=== PATIENT | male | born 1955 | race Caucasian/White ===

== ENCOUNTER 2016-07-16 13:31 | Emergency (ER) | payer MEDICARE, MEDICAID ==
[~2016-07-16] VITALS: Ht 172.7 cm; Wt 104.3 kg
[~2016-07-16 13:31] MED LIST: ACET325T9 PO; ARIP5TAB13 PO; ASPI-482 PO; ATOR40TA59 PO; BUPR100T6 PO; BUPR150T8 PO; CALC500T13 PO; CALC667C6 PO; CHOL20002 PO; CLON0.5T3 PO; CLON1TAB3 PO; DIPH25TA26 PO; DULO30CA2 PO; DULO60CA6 PO; FLUC100T4 PO; IBUP600T16 PO; LISI10TA2 PO; LISI1TAB3 PO; LOPE2TAB56 PO; MAG30ORA2 PO; MAGN2400 PO; MELA3TAB2 PO; METH29OI TP; METO10TA81 PO; METO25TA4 PO; MULT-208 PO; NALO25TA PO; NEBI5TAB2 PO; NITR0.4T SL; OMEG-33 PO; OMEG1CAP28 PO; OMEG300C PO; PANT40TA5 PO; POTA10CA PO; POTA10TA10 PO; PREG75CA PO; SENN1TAB15 PO; SUCR1ORA5 PO; TRAZ-90 PO; TRAZ150T49 PO; ZIPR40CA2 PO
[2016-07-16 13:34] VITALS: BP 152/64
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
[2016-07-16] MEDS ORDERED: IBUPROFEN 600 MG TABLET. PO ONE (14:00)
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
[2016-07-16] MEDS ORDERED: DIPHTH,PERTUSS(ACELL),TET TOX 0.5 ML DISP.SYRIN. VAX IM ONE (14:45)
== END 2016-07-16 14:44 | disposition home or self-care (01) ==
LOC: ER 13:31
DX: M25.562 Pain in left knee (principal); Z88.7 Allergy status to serum and vaccine; V00.831A Fall from motorized mobility scooter, initial encounter; Y93.55 Activity, bike riding; Y99.8 Other external cause status; Y92.89 Other specified places as the place of occurrence of the external cause
CPT/HCPCS: 73564; 99284

== ENCOUNTER 2016-12-31 10:49 | Observation (INO) | payer MEDICARE, MEDICAID ==
[~2016-12-31] VITALS: Ht 172.7 cm; Wt 90.9 kg
--- NOTE | 2016-12-31 11:08 | PHYS DOC ---
Past History Past Medical History: Other Past Surgical History: Other Alcohol Use: None Drug Use: None Adult General Chief Complaint Chief Complaint: NEURO SYMPTOMS/DEFICITS HPI HPI Patient is a 61 year old M who presents with left arm numbness and tingling and right hand numbness and tingling. Onset of symptoms are unclear. Patient was picked up at a motel after calling EMS for the symptoms. Patient is wheelchair bound secondary to severe weakness of the lower extremities bilaterally. Patient states he did not feel right going to bed last night and woke up sometime in the low night shaking and then this morning she developed left arm weakness and right hand numbness and tingling. Patient states he symptoms may going on since 1975. PCP: Dr. León Review of Systems Review of Systems GEN: Denies fevers, chills, sweats HEENT: Denies blurred vision, sore throat CV: Denies chest pain RESP: Denies shortness of air, cough GI: Denies n/v/d NEURO: Left upper extremity weakness and right hand numbness MSK: Denies weakness, joint pain/swelling All other systems were reviewed and found to be within normal limits, except as documented in this note. Allergies Allergies Allergies Coded Allergies Type Severity Reaction Last Updated Verified Influenza Virus Vaccines Allergy Severe Unknown 07/16/16 Yes Physical Exam Physical Exam GEN.: mod distress. Alert and oriented. HEENT: Head is normocephalic, atraumatic NECK: Supple. LUNGS: CTAB. HEART: RRR, S1, S2 present. Peripheral pulses intact ABDOMEN: Soft, nontender. Positive bowel sounds. EXTREMITIES: Without any cyanosis, left upper extremity strength 1/5, right upper extremity paresthesias to the right hand, lower extremity muscle strength 1/5 NEUROLOGIC: Normal speech, normal tone, slight left-sided facial droop PSYCHIATRIC: Normal affect, normal mood. SKIN: No ulcerations Current Patient Data Vital Signs Laboratory Tests Test 12/31/16 10:54 12/31/16 11:21 Glucose (Fingerstick) 102 mg/dL White Blood Count 6.6 x10^3/uL Red Blood Count 4.89 x10^6/uL Hemoglobin 14.4 g/dL Hematocrit 42.6 % Mean Corpuscular Volume 87 fL Mean Corpuscular Hemoglobin 29 pg Mean Corpuscular Hemoglobin Concent 34 g/dL Red Cell Distribution Width 16.2 % Platelet Count 204 x10^3/uL Neutrophils (%) (Auto) 72 % Lymphocytes (%) (Auto) 18 % Monocytes (%) (Auto) 9 % Eosinophils (%) (Auto) 2 % Basophils (%) (Auto) 1 % Neutrophils # (Auto) 4.7 x10^3uL Lymphocytes # (Auto) 1.2 x10^3/uL Monocytes # (Auto) 0.6 x10^3/uL Eosinophils # (Auto) 0.1 x10^3/uL Basophils # (Auto) 0.0 x10^3/uL Sodium Level 142 mmol/L Potassium Level 3.5 mmol/L Chloride Level 105 mmol/L Carbon Dioxide Level 25 mmol/L Anion Gap 12 Blood Urea Nitrogen 11 mg/dL Creatinine 1.0 mg/dL Estimated GFR (Cockcroft-Gault) 76.5 BUN/Creatinine Ratio 11 Glucose Level 104 mg/dL Calcium Level 8.7 mg/dL Total Bilirubin 0.7 mg/dL Aspartate Amino Transf (AST/SGOT) 12 U/L Alanine Aminotransferase (ALT/SGPT) 19 U/L Alkaline Phosphatase 103 U/L Total Protein 6.8 g/dL Albumin 3.5 g/dL Albumin/Globulin Ratio 1.1 EKG EKG 1107: EKG shows normal sinus rhythm rate is 61 no STEMI[] Radiology/Procedures Radiology/Procedures Chest x-ray NAD CT scan of the head: IMPRESSION: 1. Postsurgical changes as described above. 2. Left temporal lobe infarct. 3. No new intracranial abnormality is detected.[] Course & Med Decision Making Course & Med Decision Making Pertinent Labs and Imaging studies reviewed. (See chart for details) ED course: Patient was seen and examined emergency room a stroke alert was called out and stroke labs were ordered Initial NIH was 8 however the patient has residual deficits from her previous stroke. I do not believe the patient is a candidate for TPA since last known well was sometime yesterday and the patient had a history of an aneurysm with clipping. 1100: Updated patient on lab results and CT findings and plan to admit for further evaluation and management. 1115: Discussed CC/HP/PMH with Dr. León and recommends admit MDM: After reviewing the chart, CC/HPI/PMH, physical exam, [lab results], [ radiological results], I do not believe the patient has had a significant stroke requiring TPA. I do not believe the patient is a candidate for TPA. Patient does have new onset of weaknesses after talking with his PCP will admit for further evaluation and management. [] Dragon Disclaimer Dragon Disclaimer This electronic medical record was generated, in whole or in part, using a voice recognition dictation system. Departure Departure: Impression: Primary Impression: Left arm weakness Additional Impressions: Right hand paresthesia Facial droop Disposition: ADMITTED INPATIENT Admitting Physician: James León Condition: STABLE Referrals: ANIL ZARAGOZA MD (PCP) Problem Qualifiers MARIA DOLORES SHERMAN DO Dec 31, 2016 11:08
--- NOTE | 2016-12-31 11:18 | RAD ---
CT of the head without contrast, 12/31/2016: History: Arm and feet numbness Comparison is made to a study from 08/14/2014. There has been a previous craniotomy on the left. A radiopacity compatible with an aneurysm clip is again noted in the left parasellar region. Associated artifacts degrade image quality in this region. There is chronic encephalomalacia anteroinferiorly in the left temporal lobe compatible with an old infarct. The ventricles are within normal limits in size. There is no shift of the midline structures. There is no evidence of acute intracranial hemorrhage or mass effect. There are surgical plates along the anterior aspect of the left maxillary sinus with underlying mucosal thickening in that sinus. IMPRESSION: 1. Postsurgical changes as described above. 2. Left temporal lobe infarct. 3. No new intracranial abnormality is detected. Note: The findings were called to personnel in the [facility] ER at 11:12 AM on 12/31/2016. PQRS Compliance Statement: One or more of the following individualized dose reduction techniques were utilized for this examination: 1. Automated exposure control 2. Adjustment of the mA and/or kV according to patient size 3. Use of iterative reconstruction technique
[2016-12-31 11:34] LABS: BASO % 1 % (0-3); EOS # 0.1 x10^3/uL (0.0-0.7); EOS % 2 % (0-3); HEMATOCRIT 42.6 % (39.0-53.0); HEMOGLOBIN 14.4 g/dL (13.0-17.5); LYMPH # 1.2 x10^3/uL (1.0-4.8); LYMPH % 18 % (24-48); MEAN CORPUSCULAR HEMOGLOBIN 29 pg (25-35); MEAN CORPUSCULAR HGB CONC 34 g/dL (31-37); MEAN CORPUSCULAR VOLUME 87 fL (79-100); MONO # 0.6 x10^3/uL (0.0-1.1); MONO % 9 % (0-9); NEUT # 4.7 x10^3uL (1.8-7.7); NEUT % 72 % (31-73); PLATELET COUNT 204 x10^3/uL (140-400); RED BLOOD COUNT 4.89 x10^6/uL (4.30-5.70); RED CELL DISTRIBUTION WIDTH 16.2 % (11.5-14.5); WHITE BLOOD COUNT 6.6 x10^3/uL (4.0-11.0)
--- NOTE | 2016-12-31 11:36 | RAD ---
Portable chest, 12/31/2016: History: CVA Comparison is made to a study from 08/13/2014. The heart size and pulmonary vascularity are normal. No pulmonary infiltrates are seen. There is no evidence of pleural fluid. IMPRESSION: No acute cardiopulmonary abnormality is detected.
[2016-12-31 11:50] LABS: ALBUMIN 3.5 g/dL (3.4-5.0); ALBUMIN/GLOBULIN RATIO 1.1 (1.0-1.7); CALCIUM 8.7 mg/dL (8.5-10.1); GFR 76.5; POTASSIUM 3.5 mmol/L (3.5-5.1); TOTAL BILIRUBIN 0.7 mg/dL (0.2-1.0); TOTAL PROTEIN 6.8 g/dL (6.4-8.2)
[2016-12-31] MEDS ORDERED: ONDANSETRON PF 4 MG/2 ML VIAL. IV PRN (12:00)
[2016-12-31] MEDS ORDERED: MORPHINE SULFATE 4 MG/ML DISP.SYRIN. IV PRN (12:00)
--- NOTE | 2016-12-31 12:08 | EKG ---
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
[2016-12-31] MEDS ORDERED: cloNIDine HCL 0.1 MG TABLET PO ONE (12:10)
[2016-12-31 13:48] VITALS: BP 136/92
[2016-12-31] MEDS ORDERED: traZODone 150 MG TABLET. PO PRN (14:30)
[2016-12-31] MEDS ORDERED: SENNOSIDES/DOCUSATE 8.6/50MG TABLET. PO PRN (14:30)
[2016-12-31] MEDS ORDERED: MAG HYDROX/AL HYDROX/SIMETH 30 ML ORAL.SUSP PO PRN (14:30)
[2016-12-31] MEDS ORDERED: ATOR40TA59 PO (14:37)
[2016-12-31] MEDS ORDERED: RISP0.5T3 PO (14:37)
[2016-12-31] MEDS ORDERED: TAMS0.4C2 PO (14:37)
--- NOTE | 2016-12-31 15:42 | CONS ---
DATE OF CONSULTATION: 12/31/2016 REASON FOR CONSULTATION: Bradycardia. HISTORY OF PRESENT ILLNESS: The patient is a 61-year-old male with past medical history as noted below, who presents to the hospital in the setting of having some left-sided numbness. Initially a code stroke was called, but the patient has a history of Guillain-Bergheim syndrome and therefore, has weakness of his bilateral lower extremities and usually uses motorized wheelchair to transport. The patient with regards to his cardiovascular history reports a remote history of SVT for which presumably he has been on beta-shashank therapy since 2003 and states that since that he has not had any issues. Cardiology was asked to comment on his sinus bradycardia. The patient at baseline. Denies any chest pain, orthopnea, PND or lower extremity edema. No syncope or palpitations. Reports compliance with his medications, but unfortunately, he states that he did not take his blood pressure yesterday evening as evidenced by elevated blood pressure upon arrival to the ER. His initial EKG in the Emergency Department revealed sinus bradycardia. PAST MEDICAL HISTORY: 1. Bipolar disorder. 2. Depression. 3. History of Guillain-Bergheim syndrome from 2003. 4. Dyslipidemia. 5. Hypertension. ALLERGIES: To INFLUENZA VACCINE. CURRENT CARDIOVASCULAR MEDICATIONS: As follows: 1. Lisinopril 10 mg daily. 2. Metoprolol 6.25 mg b.i.d. 3. Atorvastatin 40 mg daily. FAMILY HISTORY: Noncontributory. SOCIAL HISTORY: The patient denies any current alcohol, illicit or tobacco use. REVIEW OF SYSTEMS: Negative for 10 out of 14 systems reviewed, unless otherwise mentioned above in HPI. PHYSICAL EXAMINATION: VITAL SIGNS: Afebrile, 75, 20, 136/92, 98% on room air. GENERAL: He is alert and oriented, in no acute distress. HEAD AND NECK: Unremarkable. HEART: Regular rate and rhythm without any murmurs, rubs or gallops. LUNGS: Clear to auscultation bilaterally. ABDOMEN: Soft, mildly tender to palpation. EXTREMITIES: No clubbing, cyanosis or edema. 2+ radial and dorsalis pedis pulses. NEUROLOGIC: No focal deficits except for weakness of the bilateral lower extremities. DIAGNOSTIC TESTING: Hemoglobin 14.4, platelets 204,000. Creatinine 1.0. Troponin negative x 1. EKG, sinus bradycardia. Chest x-ray is unremarkable. CT scan of the head does not reveal any new abnormalities except for prior left temporal infarct. IMPRESSION: 1. Bradycardia, likely secondary to metoprolol use. 2. Hypertension, stage 2. 3. Prior CVA. 4. Prior history of Guillain-Bergheim syndrome with bilateral lower extremity weakness. 5. Dyslipidemia. RECOMMENDATIONS: 1. We will hold his metoprolol for now and monitor on telemetry. 2. Obtain echocardiogram. Continue other medical therapy including lisinopril and statin therapy. We will likely increase his lisinopril for better blood pressure control. Thank you for this consultation. MARIAMA MUELLER MD DR: SONALI/ridge JOB#: [id number] / [id number]
[2016-12-31] MEDS ORDERED: clonazePAM 1 MG TABLET PO SCH (16:00)
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
[2016-12-31] MEDS ORDERED: ENOXAPARIN 40 MG/0.4 ML DISP.SYRIN. SQ SCH (16:30)
[2016-12-31 17:00] VITALS: BP 172/86
[2016-12-31] MEDS: LISINOPRIL 10 MG TABLET PO SCH (17:05)
[2016-12-31 17:51] VITALS: BP 182/96
--- NOTE | 2016-12-31 18:05 | NUR ---
Nursing Note At this time doctor of nursing practice reported to this RN that pt is complaining of numbness. Upon assessment pt states he has sudden onset of numbness in face, bilateral extremities below elbows and bilateral lower legs along with pain in back of neck. Vital signs obtained at this time (see chart). Dr. Cortez paged at this time regarding this matter. Will continue to monitor.
[2016-12-31 18:10] VITALS: BP 166/67
[2016-12-31 20:30] VITALS: BP 111/72
[2016-12-31] MEDS: PREGABALIN 75 MG CAPSULE PO SCH (20:31)
[2016-12-31] MEDS ORDERED: METOPROLOL TART IMMED RELEASE 25 MG TABLET PO SCH (21:00)
[2016-12-31 23:13] VITALS: BP 100/67
[2017-01-01] MEDS: ACETAMINOPHEN 325 MG TABLET PO PRN ×2 (04:49→12:59)
[2017-01-01 06:14] VITALS: BP 161/94
[2017-01-01 06:55] LABS: BASO % 1 % (0-3); EOS # 0.1 x10^3/uL (0.0-0.7); EOS % 3 % (0-3); HEMATOCRIT 38.8 % (39.0-53.0); HEMOGLOBIN 12.9 g/dL (13.0-17.5); LYMPH # 1.2 x10^3/uL (1.0-4.8); LYMPH % 24 % (24-48); MEAN CORPUSCULAR HEMOGLOBIN 29 pg (25-35); MEAN CORPUSCULAR HGB CONC 33 g/dL (31-37); MEAN CORPUSCULAR VOLUME 88 fL (79-100); MONO # 0.4 x10^3/uL (0.0-1.1); MONO % 8 % (0-9); NEUT # 3.2 x10^3uL (1.8-7.7); NEUT % 64 % (31-73); PLATELET COUNT 158 x10^3/uL (140-400); RED BLOOD COUNT 4.41 x10^6/uL (4.30-5.70); RED CELL DISTRIBUTION WIDTH 15.5 % (11.5-14.5)
[2017-01-01 07:01] LABS: CALCIUM 8.2 mg/dL (8.5-10.1); GFR 76.5; POTASSIUM 3.1 mmol/L (3.5-5.1)
[2017-01-01] MEDS ORDERED: clonazePAM 0.5 MG TABLET PO SCH (07:30)
[2017-01-01] MEDS ORDERED: PANTOPRAZOLE 40 MG TABLET. PO SCH (07:30)
[2017-01-01] MEDS ORDERED: POTASSIUM CHLORIDE 10 MEQ TABLET.ER. PO SCH ×2 (08:00→21:00)
[2017-01-01] MEDS: PREGABALIN 75 MG CAPSULE PO SCH (08:13)
[2017-01-01] MEDS: LISINOPRIL 10 MG TABLET PO SCH (08:13)
[2017-01-01] MEDS ORDERED: MULTIVITAMIN with MINERAL TABLET. PO SCH (09:00)
[2017-01-01] MEDS ORDERED: LISINOPRIL 10 MG TABLET PO SCH (09:00)
[2017-01-01] MEDS ORDERED: buPROPion XL 150 MG TAB.ER.24H PO SCH (09:00)
[2017-01-01] MEDS ORDERED: DULoxetine HCL 60 MG CAPSULE.DR PO SCH (09:00)
[2017-01-01] MEDS ORDERED: CALCIUM CARBONATE 500 MG TABLET PO SCH (09:00)
[2017-01-01 09:14] VITALS: BP 161/87
[2017-01-01] MEDS ORDERED: NITROGLYCERIN SUBLINGUAL 0.4 MG BOTTLE OF 25. SL PRN (09:30)
--- NOTE | 2017-01-01 10:15 | PDOC ---
PROGRESS NOTES Diagnosis Problem Problems Medical Problems: (1) Facial droop Status: Acute (2) Left arm weakness Status: Acute (3) Right hand paresthesia Status: Acute Assessment Problems Medical Problems: (1) Facial droop Status: Acute (2) Left arm weakness Status: Acute (3) Right hand paresthesia Status: Acute 1. Bradycardia, likely secondary to metoprolol use, improved. 2. Hypertension, stage 2. - pressures increased off beta shashank. monitor. Consider increase ACEI. 3. Prior CVA - neuro consulted/following 4. 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 5. Dyslipidemia. Problems: Subjective no chest pain, no dyspnea, no palpitations. Objective Vital Signs Date Time Temp Pulse Resp B/P (MAP) Pulse Ox O2 Delivery O2 Flow Rate FiO2 01/01/17 09:14 70 161/87 (111) 01/01/17 06:14 97.3 18 100 Room Air Intake and Output 01/01/17 07:00 Intake Total 900 ml Output Total 1300 ml Balance -400 ml Intake Oral 900 ml Output Urine Total 1300 ml Abdomen: Normal bowel sounds, Soft Heart: Regular rate, Normal S1, Normal S2 General: Alert, Oriented X3, Cooperative Lungs: Clear to auscultation, Normal air movement Psych/Mental Status: Mental status NL, Mood NL Review of Relevant I have reviewed the following items sravan (where applicable) has been applied. Labs Laboratory Tests Test 12/31/16 10:54 12/31/16 11:21 01/01/17 06:35 Glucose (Fingerstick) 102 mg/dL (70-99) White Blood Count 6.6 x10^3/uL (4.0-11.0) 5.0 x10^3/uL (4.0-11.0) Red Blood Count 4.89 x10^6/uL (4.30-5.70) 4.41 x10^6/uL (4.30-5.70) Hemoglobin 14.4 g/dL (13.0-17.5) 12.9 g/dL (13.0-17.5) Hematocrit 42.6 % (39.0-53.0) 38.8 % (39.0-53.0) Mean Corpuscular Volume 87 fL (79-100) 88 fL (79-100) Mean Corpuscular Hemoglobin 29 pg (25-35) 29 pg (25-35) Mean Corpuscular Hemoglobin Concent 34 g/dL (31-37) 33 g/dL (31-37) Red Cell Distribution Width 16.2 % (11.5-14.5) 15.5 % (11.5-14.5) Platelet Count 204 x10^3/uL (140-400) 158 x10^3/uL (140-400) Neutrophils (%) (Auto) 72 % (31-73) 64 % (31-73) Lymphocytes (%) (Auto) 18 % (24-48) 24 % (24-48) Monocytes (%) (Auto) 9 % (0-9) 8 % (0-9) Eosinophils (%) (Auto) 2 % (0-3) 3 % (0-3) Basophils (%) (Auto) 1 % (0-3) 1 % (0-3) Neutrophils # (Auto) 4.7 x10^3uL (1.8-7.7) 3.2 x10^3uL (1.8-7.7) Lymphocytes # (Auto) 1.2 x10^3/uL (1.0-4.8) 1.2 x10^3/uL (1.0-4.8) Monocytes # (Auto) 0.6 x10^3/uL (0.0-1.1) 0.4 x10^3/uL (0.0-1.1) Eosinophils # (Auto) 0.1 x10^3/uL (0.0-0.7) 0.1 x10^3/uL (0.0-0.7) Basophils # (Auto) 0.0 x10^3/uL (0.0-0.2) 0.0 x10^3/uL (0.0-0.2) Prothrombin Time 10.4 SEC (9.4-11.4) Prothromb Time International Ratio 1.0 (0.9-1.1) Sodium Level 142 mmol/L (136-145) 141 mmol/L (136-145) Potassium Level 3.5 mmol/L (3.5-5.1) 3.1 mmol/L (3.5-5.1) Chloride Level 105 mmol/L (98-107) 106 mmol/L (98-107) Carbon Dioxide Level 25 mmol/L (21-32) 29 mmol/L (21-32) Anion Gap 12 (6-14) 6 (6-14) Blood Urea Nitrogen 11 mg/dL (8-26) 9 mg/dL (8-26) Creatinine 1.0 mg/dL (0.7-1.3) 1.0 mg/dL (0.7-1.3) Estimated GFR (Cockcroft-Gault) 76.5 76.5 BUN/Creatinine Ratio 11 (6-20) Glucose Level 104 mg/dL (70-99) 130 mg/dL (70-99) Calcium Level 8.7 mg/dL (8.5-10.1) 8.2 mg/dL (8.5-10.1) Total Bilirubin 0.7 mg/dL (0.2-1.0) Aspartate Amino Transf (AST/SGOT) 12 U/L (15-37) Alanine Aminotransferase (ALT/SGPT) 19 U/L (16-63) Alkaline Phosphatase 103 U/L (46-116) Troponin I Quantitative < 0.017 ng/mL (0-0.055) Total Protein 6.8 g/dL (6.4-8.2) Albumin 3.5 g/dL (3.4-5.0) Albumin/Globulin Ratio 1.1 (1.0-1.7) Medications Current Medications Clonidine HCl (Catapres) 0.2 mg 1X ONCE PO Last administered on 12/31/16 12: 00; Start 12/31/16 at 12:10; Stop 12/31/16 at 12:11; Status DC Ondansetron HCl (Zofran) 4 mg PRN Q4HRS PRN IV NAUSEA/VOMITING; Start at 12:00; Stop 01/01/17 at 11:59 Morphine Sulfate (Morphine 4mg Syringe) 4 mg PRN Q2HR PRN IV PAIN; Start 12/31 at 12:00; Stop 01/01/17 at 11:59 Acetaminophen (Tylenol) 650 mg PRN Q6HRS PRN PO PAIN / TEMP Last administered on 01/01/17 04:49; Start 12/31/16 at 14:30 Bupropion HCl (Wellbutrin Xl) 150 mg DAILY PO Last administered on 01/01/17 08:13; Start 01/01/17 at 09:00 Calcium Carbonate/ Glycine (Oscal) 1,000 mg DAILY PO Last administered on 01/01 08:14; Start 01/01/17 at 09:00 Clonazepam (KlonoPIN) 0.5 mg BIDACBL PO ; Start 01/01/17 at 07:30; Stop at 07:30; Status DC Clonazepam (KlonoPIN) 1 mg DAILY16 PO ; Start 12/31/16 at 16:00; Stop at 16:00; Status DC Duloxetine HCl (Cymbalta) 60 mg DAILY PO Last administered on 01/01/17 08:14 ; Start 01/01/17 at 09:00 Lisinopril (Prinivil) 10 mg DAILY PO ; Start 01/01/17 at 09:00; Stop 01/01/17 at 09:00; Status DC Al Hydroxide/Mg Hydroxide (Mylanta Plus Xs) 15 ml PRN AFTMEALHC PRN PO DYSPEPSIA; Start 12/31/16 at 14:30 Metoprolol Tartrate (Lopressor) 6.25 mg BID PO ; Start 12/31/16 at 21:00; Stop 12/31/16 at 21:00; Status DC Pantoprazole Sodium (Protonix) 40 mg DAILYAC PO Last administered on 08:14; Start 01/01/17 at 07:30 Pregabalin (Lyrica) 75 mg BID PO Last administered on 01/01/17 08:13; Start 12/31/16 at 21:00 Senna/Docusate Sodium (Senna Plus) 2 tab PRN DAILY PRN PO CONSTIPATION; Start 12/31/16 at 14:30 Trazodone HCl (Desyrel) 150 mg PRN QHS PRN PO INSOMNIA Last administered on 20:31; Start 12/31/16 at 14:30 Multivitamins/ Calcium (Thera-M Plus) 1 tab DAILY PO Last administered on 01/01 08:13; Start 01/01/17 at 09:00 Potassium Chloride (Klor-Con) 10 meq DAILYWBKFT PO Last administered on 08:14; Start 01/01/17 at 08:00; Stop 01/01/17 at 09:14; Status DC Enoxaparin Sodium (Lovenox) 40 mg Q24H SQ Last administered on 12/31/16 17:06 ; Start 12/31/16 at 16:30 Lisinopril (Prinivil) 10 mg DAILY PO Last administered on 01/01/17 08:13; Start 12/31/16 at 16:00 Potassium Chloride (Klor-Con) 10 meq BID PO ; Start 01/01/17 at 21:00 Nitroglycerin (Nitrostat) 0.4 mg PRN Q5MIN PRN SL CHEST PAIN; Start 01/01/17 at 09:30 Active Scripts Active Reported Tamsulosin Hcl 0.4 Mg Cap.er.24h 1 Cap PO HS Risperidone 0.5 Mg Tablet 0.75 Tab PO BID Atorvastatin Calcium 40 Mg Tablet 1 Tab PO QHS Trazodone Hcl 150 Mg Tablet 50-150 Mg PO PRN QHS PRN Wellbutrin Sr (Bupropion Hcl) 150 Mg Tablet.er 150 Mg PO DAILY Cymbalta (Duloxetine Hcl) 30 Mg Capsule.dr 60 Mg PO DAILY Vitamin D-3 (Cholecalciferol (Vitamin D3)) 2,000 Unit Tablet 3,000 Unit PO DAILY Tylenol (Acetaminophen) 325 Mg Tablet 650 Mg PO PRN Q6HRS PRN Senna-S Tablet (Sennosides/Docusate Sodium) 1 Each Tablet 2 Tab PO PRN DAILY PRN Lyrica (Pregabalin) 75 Mg Capsule 75 Mg PO BID Oyster Shell Calcium (Calcium Carbonate) 500 Mg Tablet 1,000 Mg PO DAILY Durant 3 1,000 Mg Softgel (Durant-3 Fatty Acids/Fish Oil) 1 Each Capsule 1,000 Mg PO DAILY Metoprolol Tartrate 25 Mg Tablet 6.25 Mg PO DAILY For CHF and CAD patients: Hold for HR less than 50 or SBP less than 90. For all other patients: Hold for HR less than 60 or SBP less than 100 After a held dose reassess in 2 hours, if HR and SBP are above threshold administer dose as ordered. If HR and SBP are below threshold contact provider Lisinopril 10 Mg Tablet 5 Mg PO DAILY Hold for SBP < 100. After a held dose, reassess in 2 hours if SBP is above threshold administer dose as ordered. If SBP is below threshold contact provicdr for additional instructions Potassium Chloride 10 Meq Tablet.er 10 Meq PO DAILYWBKFT Multi-Day Vitamins (Multivitamin) 1 Each Tablet 1 Tab PO DAILY Pantoprazole Sodium 40 Mg Tablet.dr 40 Mg PO DAILY Vitals/I & O Vital Sign - Last 24 Hours 12/31/16 12/31/16 12/31/16 12/31/16 10:50 11:28 11:30 12:00 Temp 98.6 Pulse 65 64 72 48 Resp 16 16 16 B/P (MAP) 178/105 (129) 178/102 (127) 178/102 Pulse Ox 100 100 100 O2 Delivery Room Air Room Air 12/31/16 12/31/16 12/31/16 12/31/16 12:00 12:30 13:00 13:48 Temp 98.2 Pulse 53 47 49 75 Resp 16 16 16 20 B/P (MAP) 183/102 (129) 202/93 (129) 189/107 (134) 136/92 (107) Pulse Ox 100 100 100 98 O2 Delivery Room Air Room Air 12/31/16 12/31/16 12/31/16 12/31/16 17:00 17:05 17:51 18:10 Temp 97.8 Pulse 48 48 49 49 Resp 24 B/P (MAP) 172/86 (114) 172/86 182/96 (124) 166/67 (100) Pulse Ox 96 O2 Delivery Room Air 12/31/16 12/31/16 12/31/16 01/01/17 19:35 20:30 23:13 06:14 Temp 98.1 97.6 97.3 Pulse 76 70 56 Resp 20 22 18 B/P (MAP) 111/72 (85) 100/67 (78) 161/94 (116) Pulse Ox 98 97 100 O2 Delivery Room Air Room Air Room Air Room Air 01/01/17 01/01/17 08:13 09:14 Pulse 56 70 B/P (MAP) 161/94 161/87 (111) Intake and Output 12/31/16 12/31/16 01/01/17 15:00 23:00 07:00 Intake Total 480 ml 420 ml Output Total 400 ml 900 ml Balance 80 ml -480 ml RAYNA PHOENIX DOOR REPAIRMAN Jan 01, 2017 10:15
[2017-01-01 10:34] VITALS: BP 171/99
--- NOTE | 2017-01-01 10:39 | EKG ---
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
--- NOTE | 2017-01-01 10:58 | HP ---
ADMIT DATE: 12/31/2016 HISTORY OF PRESENT ILLNESS: A 61-year-old gentleman, he has a history of Guillain-[place] syndrome, came in with left arm numbness, tingling and right hand numbness and tingling. The patient apparently was up here for a visiting for a . The patient is chronically in a wheelchair secondary to his Guillain-[place] syndrome. The patient had a shaking spells, possibly consistent with seizure-like activity. The patient was admitted for possibility of a TIA versus stroke in evolution. PAST MEDICAL HISTORY: Tinnitus. He has had history of CVA, seizures, peripheral neuropathy, Guillain-[place] syndrome, angina. He has had an aneurysm of the head and heart 2003, hypercholesterolemia, hypertension, sleep apnea, appendectomy, colitis, GERD, chronic renal disease, incontinence, osteoarthritis, degenerative disk disease, left leg pain, ORIF, left femur fracture in 03/2008, chronic back pain, bipolar disorder, depression, previous suicide attempt, anemia. He has had surgery on brain aneurysm clipping in 2003 and left femur fracture. FAMILY HISTORY: Positive for asthma, angina. ALLERGIES: ADVERSE REACTION TO INFLUENZA VIRUS VACCINE OR ALLERGY THEREOF. SOCIAL HISTORY: Denies smoking, alcohol or drug use. REVIEW OF SYSTEMS: Denies shortness of breath, does have chest pain in the left chest wall and going down his left arm. We will get an EKG on him and cardiac enzymes and make further evaluation on him as indicated. PHYSICAL EXAMINATION: GENERAL: Pleasant white male, looking somewhat older than stated age, very weak in his lower extremities. VITAL SIGNS: Blood pressure 160/90, respiratory rate 18, pulse 60, afebrile, oxygen saturation good. HEENT: Head atraumatic, normocephalic. Eyes: PERRLA without jaundice. Mouth and throat were normal. NECK: Supple, without JVD or thyromegaly. LUNGS: Diminished throughout, poor movement of air. CARDIOVASCULAR: Some chest wall pain on palpation. ABDOMEN: Soft, nontender. EXTREMITIES: No clubbing, cyanosis or edema. NEUROLOGIC: Intact. LABORATORY DATA: The patient showed cardiac enzymes to be unremarkable. Potassium slightly low at 3.1. Otherwise, his BUN and creatinine were basically normal. Cardiac enzymes so far have been negative. Chest x-ray was unremarkable. IMAGING STUDIES: CT of the head done basically unchanged. IMPRESSION: Transient ischemic attack like symptoms. We will consult with Neurology. Chest pain, consult with Cardiology and make further evaluation on the patient as well. NEVA CUELLAR MD DR: SALLIE/ridge JOB#: [id number] / [id number]
[2017-01-01] MEDS ORDERED: LISI-334 PO (11:43)
--- NOTE | 2017-01-01 14:38 | CONS ---
DATE OF CONSULTATION: 12/31/2016 NEUROLOGY CONSULTATION REFERRING PHYSICIAN: James León M.D. REASON FOR CONSULTATION: Intermittent numbness and tingling of the left side. 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 The patient was admitted through Emergency Room because of new onset of intermittent numbness and paresthesia of the left upper and lower extremities started yesterday when he was in a hotel waiting for a next day. He also complains of intermittent multiple neurological complaints including dizziness, lightheadedness, tinnitus in both ears, numbness and paresthesia of the arms and legs. He forgot to take his blood pressure medication last night and when he was seen in the Emergency Room, his blood pressure was high. The patient has been taking a beta shashank for supraventricular tachycardia, but he was found to have sinus bradycardia on arrival to the Emergency Room. PAST MEDICAL HISTORY: Significant for multiple psychiatric problems including depression, anxiety, bipolar disorder, history of suicidal attempt. Past medical history is consistent with CIDP, hypertension, hyperlipidemia, history of a cerebral aneurysm, obstructive sleep apnea required CPAP, GERD, colitis, stress incontinence, osteoarthritis, degenerative disk disease and anemia, angina. PAST SURGICAL HISTORY: Significant for appendectomy in 2013, left femur bone fracture in 2008 required ORIF, status post brain aneurysm clipping in 2003. SOCIAL HISTORY: The patient is single. He denies smoking, alcohol drinking, or illicit drug use. FAMILY HISTORY: Noncontributory. CURRENT MEDICATIONS: Multivitamins, calcium, Cymbalta 60 mg p.o. daily, Os-Tommie 1000 mg daily, Wellbutrin XR 150 mg p.o. daily, potassium 10 mEq daily, Protonix 40 mg daily, Lyrica 75 mg b.i.d., lisinopril 10 mg daily, trazodone 150 mg at bedtime, Tylenol, morphine sulfate 4 mg IV q. 2 hours p.r.n. for pain and Zofran 4 mg q. 4 hours p.r.n. for nausea and vomiting. ALLERGIES: INFLUENZA VIRUS VACCINE. PHYSICAL EXAMINATION: GENERAL: Well-developed, well-nourished white male, not in acute distress. He weighs 196 pounds with BMI of 30. VITAL SIGNS: Afebrile, blood pressure 166/67, respiratory rate 24, pulse is 49, temperature 98.1, oxygen saturation 98% on room air. HEENT: Normocephalic, atraumatic; otherwise, unremarkable. NECK: Supple. Negative for carotid bruit, lymphadenopathy or thyromegaly. LUNGS: Clear to A and P. CARDIOVASCULAR: Regular rate and rhythm, normal S1, S2. There is no S3, S4 or murmur. ABDOMEN: Soft. Bowel sounds positive. EXTREMITIES: Negative for cyanosis, clubbing or pitting edema. NEUROLOGICAL: 1. MENTAL STATUS: The patient is alert and oriented x 2. The speech is fluent. There is no language dysfunction. Memory, judgment, and abstract thinking are fair. The patient denies hallucination or delusion. 2. CRANIAL NERVES: Visual estrada are full. The pupils are reactive to light and accommodation. Extraocular movements are intact. There is no nystagmus. There is no facial motor or sensory deficit. Hearing is intact bilaterally. The palate is elevated symmetrically. Sternocleidomastoid muscles are powerful bilaterally. The patient shrugs his shoulders symmetrically and protrudes his tongue in the midline without fasciculation or atrophy. 3. MOTOR EXAMINATION: There is marked focal slowing of the hands with atrophy of the FDI bilaterally. The strength is 4/5 in the upper extremities and +3/5 in the lower extremities with marked dorsiflexion weakness of the feet represent foot drop bilaterally. Deep tendon reflexes were symmetric and hypoactive with absent Achilles responses. GAIT: The patient is a wheelchair and electric chair bound. The coordination, the patient has normal [id number]. LABORATORY DATA: CBC revealed white blood cells of 6.6 thousand, hemoglobin 14.4, hematocrit 42.6, platelet count 204,000. Chemistry revealed sodium of 142, potassium 3.5, chloride 105, CO2 25, BUN 11, creatinine 1, glucose 104, calcium 8.7. Liver enzymes, low AST and normal ALT and alkaline phosphatase. Troponin level less than 0.017. DIAGNOSTIC DATA: Nonenhanced head CT scan revealed postsurgical changes consistent with previous left craniotomy for aneurysm clipping with chronic encephalomalacia mainly confined to the left temporal lobe and old infarct. His chest x-ray revealed no acute cardiopulmonary abnormalities. IMPRESSION: 1. Longstanding history of chronic inflammatory demyelinating polyradiculoneuropathy with residual of intermittent numbness and paresthesia of the upper and lower extremities and recent complaints of intermittent numbness and paresthesia of the left side with questionable transient ischemic attack. 2. Multiple neurological complaints. 3. Multiple medical problems include hyperlipidemia, hypertension, obstructive sleep apnea, gastroesophageal reflux disease. 4. Multiple psychiatric problems including bipolar disorder, depression and history of behavior disorders. 5. History of left temporal craniotomy for aneurysm clipping with an old left temporal infarct. 6. Sinus bradycardia. RECOMMENDATIONS: 1. Continue with current medical management. 2. Continue with Cardiology recommendations. M Christie CARRILLO MD DR: CYN/ridge JOB#: [id number] / [id number]
--- NOTE | 2017-01-01 17:10 | NUR ---
NSG NOTE; DISCHARGE VERBAL AND WRITTEN DISCHARGE INFORMATION GIVEN TO PT WITH VERBAL UNDERSTANDING RX FOR LISINOPRIL 20 MG CALLED TO PT'S PHARMACY DISCHARGE TO HOME VIA W/C ACCOMP BY FAMILY MEMBERS
[2017-01-02] MEDS ORDERED: LISINOPRIL 20 MG TABLET PO SCH (09:00)
--- NOTE | 2017-01-03 18:27 | DS ---
DATE OF DISCHARGE: 01/01/2017 HOSPITAL COURSE: A 61-year-old male, somewhat histrionic, has a history of Guillain-Wallingford syndrome, came in with severe left arm numbness tingling in right hand and arm. The patient was admitted in the hospital. He was having shaking spells consistent with seizure-like activity for which he has had a history of it. The patient was admitted for possible TIA or seizure activity as well as to rule out any type of cardiac event going down his left arm as well. The patient's cardiac enzymes were unremarkable. Potassium was slightly low at 3.1. He was seen by Dr. Cannon as well as Dr. Cortez Cardiology, Neurology respectively. They cleared him. The patient made good progress during the rest of his hospitalization. His chemistries were basically unremarkable. Blood sugars slightly elevated but nonfasting. Potassium was brought up with additional potassium supplementation. Overall, the patient made excellent progress. The patient had a head CAT scan, which did not show anything. 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 Otherwise, the patient made good progress. [place]. 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 The patient will be monitored carefully. I will make further evaluation on him as indicated and he will be followed up with his physician at the nursing facility. Otherwise, see [facility]. Regular diet, decreased activity. NEVA CUELLAR MD DR: SALLIE/ridge JOB#: [id number] / [id number]
== END 2017-01-01 17:00 | disposition home or self-care (01) ==
LOC: ER 10:49 → 1 SOUTH 11:51
PROVIDERS: ADMIT Family Medicine; ATTEND Family Medicine
DX: R20.0 Anesthesia of skin (principal); R20.2 Paresthesia of skin; E78.5 Hyperlipidemia, unspecified; I12.9 Hypertensive chronic kidney disease with stage 1 through stage 4 chronic kidney disease, or unspecified chronic kidney disease; N18.9 Chronic kidney disease, unspecified; F31.9 Bipolar disorder, unspecified; E78.00 Pure hypercholesterolemia, unspecified; G47.33 Obstructive sleep apnea (adult) (pediatric); G61.0 Guillain-Barre syndrome; G61.81 Chronic inflammatory demyelinating polyneuritis; H93.19 Tinnitus, unspecified ear; I47.1 Supraventricular tachycardia; K21.9 Gastro-esophageal reflux disease without esophagitis; M19.90 Unspecified osteoarthritis, unspecified site; G89.29 Other chronic pain; Z82.5 Family history of asthma and other chronic lower respiratory diseases; Z86.73 Personal history of transient ischemic attack (TIA), and cerebral infarction without residual deficits; Z91.5 Personal history of self-harm
CPT/HCPCS: 36415; 70450; 71010; 80048; 80053; 82947; 84484; 85025; 85610; 93005; 96372; 97162; 97166; 99285; G0378; J1650; G0379

== ENCOUNTER 2017-01-01 18:13 | Emergency (ER) | payer MEDICARE, MEDICAID ==
[~2017-01-01] VITALS: Ht 172.7 cm; Wt 90.9 kg
[~2017-01-01 18:13] MED LIST changes: +LISI-334 PO; +RISP0.5T3 PO; +TAMS0.4C2 PO
[2017-01-01 18:23] VITALS: BP 148/114
[2017-01-01] MEDS ORDERED: ZIPRASIDONE IM 20 MG VIAL. IM ONE (18:45)
--- NOTE | 2017-01-01 20:27 | PHYS DOC ---
Past History Past Medical History: Bipolar, Constipation, Depression, GERD Past Surgical History: Other Alcohol Use: None Drug Use: None Adult General Chief Complaint Chief Complaint: CHEST PAIN HPI HPI 61-year-old male with an extensive psychiatric history just discharged from the hospital today after being admitted on the with a complaint of tingling in his hand since 1975. He was admitted to Dr. León's service, who is his primary care doctor. She now returns to the emergency department because of same chronic symptoms which he has had since 1975 including tingling aches and chest pain with movement. Patient has no exertional chest pain. His chest is sore with palpation and movement. No productive cough or fever. No pleuritic pain. He is currently asymptomatic. Patient started screaming at me during my exam stating "just figure out what's going on. " Review of Systems Review of Systems Constitutional: Denies fever or chills [] Eyes: Denies change in visual acuity, redness, or eye pain [] HENT: Denies nasal congestion or sore throat [] Respiratory: Denies cough or shortness of breath [] Cardiovascular: No additional information not addressed in HPI [] GI: Denies abdominal pain, nausea, vomiting, bloody stools or diarrhea [] : Denies dysuria or hematuria [] Musculoskeletal: Denies back pain or joint pain [] Integument: Denies rash or skin lesions [] Neurologic: Denies headache, focal weakness or sensory changes [] Endocrine: Denies polyuria or polydipsia [] All other systems were reviewed and found to be within normal limits, except as documented in this note. Current Medications Current Medications Current Medications Medications (Trade) Dose Ordered Sig/Flora Start Time Stop Time Status Last Admin Dose Admin Ziprasidone (Geodon Im) 10 mg 1X ONCE 01/01/17 18:45 01/01/17 18:46 DC 01/01/17 19:01 10 MG Allergies Allergies Allergies Coded Allergies Type Severity Reaction Last Updated Verified Influenza Virus Vaccines Allergy Severe Unknown 12/31/16 Yes Physical Exam Physical Exam Anxious appearing intermittently yelling elderly male appearing older than his stated age. Easily reproducible bilateral anterior chest wall tenderness. No crepitus. Clear lungs regular rate and rhythm no tachycardia Constitutional: Well developed, well nourished, no acute distress, non-toxic appearance. [] HENT: Normocephalic, atraumatic, bilateral external ears normal, oropharynx moist, no oral exudates, nose normal. [] Eyes: PERRLA, EOMI, conjunctiva normal, no discharge. [] Neck: Normal range of motion, no tenderness, supple, no stridor. [] Cardiovascular:Heart rate regular rhythm, no murmur [] Lungs & Thorax: Bilateral breath sounds clear to auscultation [] Abdomen: Bowel sounds normal, soft, no tenderness, no masses, no pulsatile masses. [] Skin: Warm, dry, no erythema, no rash. [] Back: No tenderness, no CVA tenderness. [] Extremities: No tenderness, no cyanosis, no clubbing, ROM intact, no edema. [] Neurologic: Alert , normal motor function, normal sensory function, no focal deficits noted. [] Psychologic: Patient is intermittently argumentative, verbally abusive, and confrontational. He has times when he is calm and cooperative is well. Patient has a clearly contributory anxiety component Current Patient Data Vital Signs Vital Signs Date Time Temp Pulse Resp B/P (MAP) Pulse Ox O2 Delivery O2 Flow Rate FiO2 01/01/17 18:23 90 20 98 Room Air Lab Results Laboratory Tests Test 01/01/17 19:51 POC Troponin I 0.01 ng/ml (<0.08) EKG EKG EKG with normal sinus rhythm at 94 normal axis no STEMI interpreted by me[] Radiology/Procedures Radiology/Procedures Chest x-ray with chronic changes no acute disease interpreted by me[] Course & Med Decision Making Course & Med Decision Making Pertinent Labs and Imaging studies reviewed. (See chart for details) Patient with anxiety, clear contribution from his psychiatric diagnoses with some irrational behavior. Easily reproducible chest wall pain with a negative ED workup and as he describes the same symptoms since 1975. Recent unremarkable hospitalization. Case discussed with his primary care doctor Dr. León, who knows patient very well. He agrees with no further workup or treatment at this time an outpatient follow-up in his office [] Dragon Disclaimer Dragon Disclaimer This electronic medical record was generated, in whole or in part, using a voice recognition dictation system. Departure Departure: Impression: Primary Impression: Chest wall pain Additional Impression: Anxiety about health Disposition: HOME, SELF-CARE Condition: STABLE Referrals: NEVA LEÓN MD Additional Instructions: You're experiencing chest wall pain today. It is very clear that your anxiety and psychiatric challenges are contributing to your symptoms today. Your case was discussed with your primary care doctor, Dr. León. He agrees with the plan to continue your medications as prescribed and follow-up with him tomorrow. If you have soreness you could take Tylenol every 4 hours as needed. Problem Qualifiers CHARLES DURAND MD Jan 01, 2017 20:27
--- NOTE | 2017-01-02 07:43 | RAD ---
Portable chest, 01/01/2017: History: Chest wall pain Comparison is made to a study from 12/31/2016. The heart size and pulmonary vascularity are normal. There is mild unchanged tortuosity of prominence of the ascending aorta. No pulmonary infiltrates are seen. There is no evidence of pleural fluid. IMPRESSION: No acute cardiopulmonary abnormality is detected.
--- NOTE | 2017-01-02 14:33 | EKG ---
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 POSSIBLY ABNORMAL ECG RI6.01 Unconfirmed report Compared to ECG 01/01/2017 09:48:09 No significant changes Electronically Signed On 01-02-2017 16:02:27 HEEL ROOM SUPERVISOR by Yury Andrews
== END 2017-01-01 20:45 | disposition home or self-care (01) ==
LOC: ER 18:13
DX: R07.89 Other chest pain (principal); F41.9 Anxiety disorder, unspecified; K21.9 Gastro-esophageal reflux disease without esophagitis; F31.9 Bipolar disorder, unspecified; Z88.7 Allergy status to serum and vaccine
CPT/HCPCS: 71010; 84484; 93005; 96372; 99284; J3486